=== PATIENT | female | born 1940 | race Caucasian/White ===

== ENCOUNTER → 2016-03-29 | Outpatient (REF) | payer MEDICARE, OTHER ==
[~2016-03-29] MED LIST: /LOR25TA PO; /METH500TA PO; /METO25TAB PO; /PANT40TA; ACID1CAP PO; AMBIEN PO; COUM2.5T11 PO; CRANBERRY PO; EC-881TA PO; ESTROGEN REPLACEMENT; EXTR500C4 PO; IBUP-1114 PO; LEVA500T PO; LISI-538 PO; LISI10TA2 PO; METF500T PO; METH4TAB6 PO; MOTRIN PO; MYRB25TA PO; OXYB5TA PO; PERC5TAB6 PO; PROBIOTIC PO; SENO8.6T9 PO; SIMV20TA2 PO; TOPROL; TYLE325T5 PO; VITA500C10 PO; ZOCO20TA PO; [UNRECOGNIZED DRUG - REMARK]
== END ==
LOC: M SMT 13:09
PROVIDERS: ATTEND Nurse Practitioner Family
DX: R30.0 Dysuria (principal)

== ENCOUNTER → 2016-04-30 | Outpatient (REF) | payer MEDICARE, OTHER | LOC: M SMT 13:02 | PROVIDERS: ATTEND Urology | DX: R33.9 Retention of urine, unspecified (principal) ==

== ENCOUNTER → 2016-05-17 | Outpatient (REF) | payer MEDICARE, OTHER | LOC: M SMT 13:30 | PROVIDERS: ATTEND Nurse Practitioner Women's Health | DX: R35.0 Frequency of micturition (principal) ==

== ENCOUNTER → 2016-05-27 | Outpatient (REF) | payer MEDICARE, OTHER | LOC: M LAB REF 11:00 | PROVIDERS: ATTEND Nurse Practitioner Adult Health | DX: N39.0 Urinary tract infection, site not specified (principal) ==

== ENCOUNTER → 2016-06-17 | Outpatient (REF) | payer MEDICARE, OTHER | LOC: M SMT 12:57 | PROVIDERS: ATTEND Urology | DX: R33.9 Retention of urine, unspecified (principal) | CPT/HCPCS: 81001; 87088; 87186; G0463 ==

== ENCOUNTER → 2016-07-06 | Outpatient (REF) | payer MEDICARE, OTHER | LOC: M LAB REF 17:05 | PROVIDERS: ATTEND Obstetrics & Gynecology | DX: N30.80 Other cystitis without hematuria (principal); Z87.440 Personal history of urinary (tract) infections ==

== ENCOUNTER → 2016-07-15 | Outpatient (REF) | payer MEDICARE, OTHER | LOC: M LAB REF 12:45 | PROVIDERS: ATTEND Nurse Practitioner Women's Health | DX: R30.0 Dysuria (principal) ==

== ENCOUNTER → 2016-09-17 | Outpatient (REF) | payer MEDICARE, OTHER ==
[~2016-09-17] MED LIST changes: +ASPI1TAB PO; +COUM1TAB17 PO; -COUM2.5T11 PO; +COUM2.5T17 PO; +FLORCAP6 PO; +HYDR-3713 PO; +IBUP200T45 PO; +LEVA1TAB2 PO; -LEVA500T PO; +MACR100C43 PO; +MENE0.3T PO; -METF500T PO; +METF500T13 PO; +OXYB10TA PO; -OXYB5TA PO; +OXYB5TAB10 PO; +PERC5TAB12 PO; -PERC5TAB6 PO
== END ==
LOC: M LAB REF 16:26
PROVIDERS: ATTEND Obstetrics & Gynecology
DX: R30.0 Dysuria (principal); R33.8 Other retention of urine

== ENCOUNTER → 2016-10-22 | Outpatient (CLI) | payer MEDICARE, OTHER ==
[2016-10-22 12:19] LABS: MEAN CORPUSCULAR HEMOGLOBIN 31.1 pg (27.0-33.0); MEAN CORPUSCULAR HGB CONC 33.8 g/dl (32.0-36.5); MEAN CORPUSCULAR VOLUME 92.2 fl (80.0-96.0); RED CELL DISTRIBUTION WIDTH 12.6 % (11.5-14.5); WHITE BLOOD COUNT 5.7 K/mm3 (4.0-10.0)
[2016-10-22 12:37] LABS: INR 0.98
--- NOTE | 2016-10-22 12:38 | REP ---
Clinical: Preoperative assessment . Comparison: 06/02/2015 . Technique: PA and lateral. Findings: The mediastinum and cardiac silhouette are normal. Airway is patent and midline. The lung parnell are clear and without acute consolidation, effusion, or pneumothorax. Status post right shoulder arthroplasty and advanced degenerative changes to the left shoulder. Impression: 1. No acute cardiopulmonary process. Signed by Jimmy Chandra MD 10/22/2016 12:30 P
[2016-10-22 12:44] LABS: ALBUMIN 3.6 GM/DL (3.2-5.2); ALBUMIN/GLOBULIN RATIO 1.03 (1.00-1.93); ALKALINE PHOSPHATASE 70 U/L (45-117); ALT/SGPT 18 U/L (12-78); ANION GAP 9 MEQ/L (8-16); AST/SGOT 13 U/L (15-37); BILIRUBIN,TOTAL 0.4 MG/DL (0.2-1.0); BLOOD UREA NITROGEN 19 MG/DL (7-18); CALCIUM LEVEL 8.8 MG/DL (8.8-10.2); CARBON DIOXIDE LEVEL 24 MEQ/L (21-32); CHLORIDE LEVEL 109 MEQ/L (98-107); CREATININE FOR GFR 0.75 MG/DL (0.55-1.02); GLOMERULAR FILTRATION RATE > 60.0 (>39); GLUCOSE, FASTING 88 MG/DL (83-110); POTASSIUM SERUM 4.5 MEQ/L (3.5-5.1); SODIUM LEVEL 142 MEQ/L (136-145); TOTAL PROTEIN 7.1 GM/DL (6.4-8.2)
--- NOTE | 2016-10-22 16:51 | ECGEPIP ---
Stationary ECG Study [facility] Test Date: 2016-10-22 Pat Name: ZENY SIERRA Department: Room: - Gender: F Wall Taper: : 1940 Requested By: Jose Emerson Order Number: [id number] Reading MD: Sohan Pace Measurements Intervals [place] Rate: 56 P: 46 DE: 162 QRS: -31 QRSD: 131 T: -11 QT: 436 QTc: 424 Interpretive Statements Sinus bradycardia Left axis deviation Right bundle branch block No significant change when compared to prior tracing of 06/02/2015 Electronically Signed On 10-22-2016 16:51:17 EDT by Sohan Pace
== END ==
LOC: M ADMPAT 10:21
PROVIDERS: ATTEND Orthopaedic Surgery
DX: Z01.818 Encounter for other preprocedural examination (principal); E11.9 Type 2 diabetes mellitus without complications; M17.12 Unilateral primary osteoarthritis, left knee

== ENCOUNTER 2016-11-04 12:59 | Inpatient (IN) | payer MEDICARE, OTHER ==
--- NOTE | 2016-11-02 15:09 | HPE ---
DATE OF ADMISSION: 11/04/2016 CHIEF COMPLAINT: Left knee pain. HISTORY OF PRESENT ILLNESS: This is a pleasant 76-year-old female with progressively worsening left knee pain and stiffness. She has failed to improve with conservative treatment. She has elected for surgery for her continued symptoms. She has pain with weightbearing activities and her activities of daily living. X-rays of her knee are notable for advanced osteoarthritis of the left knee joint. She has consented for a left total knee arthroplasty with Dr. Ki Aponte. Medical optimization was performed by Dr. Sharif. ALLERGIES: PINEAPPLE, PENICILLIN, SULFA, and CIPROFLOXACIN. CURRENT MEDICATIONS: - metformin 500 mg two tablets once a day - simvastatin 20 mg one tablet at bedtime - Menest 0.3 mg one tablet daily - Myrbetriq 0.25 mg one tablet daily - lisinopril 20 mg one tablet daily - aspirin 81 mg a day - vitamin C 1000 mg a day - Florajen 3 one tablet a day PAST MEDICAL HISTORY: Includes: 1. Diabetes. 2. Hypertension. 3. High cholesterol. PAST SURGICAL HISTORY: Includes: 1. Cholecystectomy. 2. Hysterectomy. 3. Abdominal hernia repair. 4. Gallbladder surgery. 5. Appendectomy. SOCIAL HISTORY: This patient is retired. She does not smoke. Occasionally drinks alcohol. FAMILY HISTORY: Noncontributory. REVIEW OF SYSTEMS: This patient denies chest pain, heart palpitations, cough, wheezing, difficulty breathing and shortness of breath. She denies abdominal pain, nausea, vomiting, diarrhea or constipation. She denies recent upper respiratory infection or urinary tract infection symptoms. She does complain of persistent pain in her left knee and pain with weightbearing activities in her left knee. PHYSICAL EXAMINATION: GENERAL: She is a well-nourished, well-developed, in no acute distress, alert female patient. She walks with a moderate limp favoring her left lower extremity. She is not using assistive devices. VITAL SIGNS: She is 61-1/2 inches tall, weighs 174.8 pounds with a temperature of 97.0, blood pressure 100/80, pulse of 68, respirations of 12. NECK: Supple without adenopathy or jugular venous distension. There were no carotid bruits appreciated upon auscultation. LUNGS: Clear to auscultation without rales or wheeze throughout. HEART: Regular rate and rhythm. ABDOMEN: Bowel sounds were present. EXTREMITIES: Examination of the knee revealed intact skin. She has decreased range of motion on examination secondary to pain and stiffness. The limb is neurovascularly intact. LABORATORY DATA: Chest x-ray showed no acute cardiopulmonary disease processes. EKG showed sinus bradycardia at 56 beats per minute. Urine culture showed no growth. Nasal and sinus culture showed heavy growth of Staphylococcus aureus and moderate growth of Pseudomonas aeruginosa. CBC showed a red count of 3.92, otherwise within normal limits. Sedimentation rate was 28. UA showed cloudy appearance, 3+ leukocyte esterase, 2+ blood, white blood cells too numerous to count, red blood cells 42, bacteria 1+, otherwise within normal limits with a specific gravity 1.011. Prothrombin time 13.1, INR 0.98, glucose 88, BUN 19, creatinine 0.75, sodium 142, potassium 4.5. IMPRESSION: 1. Symptomatic osteoarthritis of the left knee joint. 2. 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 PLAN: The patient was placed on Bactroban ointment to the nares and Hibiclens scrubs prior to her surgery. Otherwise, she is consented for a left total knee arthroplasty by Dr. Ki Aponte.
[~2016-11-04] VITALS: Ht 157.5 cm; Wt 75.3 kg
[~2016-11-04 12:59] MED LIST changes: -COUM1TAB17 PO; -HYDR-3713 PO; -MACR100C43 PO; -OXYB10TA PO
[2016-11-04] MEDS ORDERED: ACETAMINOPHEN 500 MG TAB PO ONE (13:00)
[2016-11-04] MEDS ORDERED: LR 1,000 ML IV ONE (13:00)
[2016-11-04] MEDS ORDERED: COUM1TAB17 PO (13:48)
[2016-11-04] MEDS ORDERED: VANCOMYCIN HCL 1,000 MG, VIAL MATE ADAPTER 1 EACH in D5W 250 ML IV ONE (14:00)
[2016-11-04] MEDS ORDERED: fentaNYL 100 MCG/2 ML INJECTION (J3010) As Ordered ONE ×2 (14:48→17:10)
[2016-11-04] MEDS ORDERED: MIDAZOLAM INJ 2 MG/2 ML VIAL (J2250) As Ordered ONE ×2 (14:48→17:10)
[2016-11-04] MEDS ORDERED: ceFAZolin 1GM INJ (J0690) As Ordered ONE (16:09)
[2016-11-04] MEDS ORDERED: BUPIVACAINE LIPOSOME/PF 1.3% 20 ML VIAL (13.3MG/ML)(EXPAREL) As Ordered ONE (16:09)
[2016-11-04] MEDS ORDERED: TRANEXAMIC ACID 100 MG/ML 10ML VIAL As Ordered ONE (16:09)
[2016-11-04] MEDS ORDERED: EPINEPHrine INJ 1 MG/ML 1ML AMP As Ordered ONE (16:10)
[2016-11-04] MEDS ORDERED: CLINDAMYCIN INJ 900MG/6ML VIAL As Ordered ONE (16:12)
[2016-11-04] MEDS ORDERED: MIDAZOLAM INJ 2 MG/2 ML VIAL (J2250) IV ONE (16:15)
[2016-11-04] MEDS ORDERED: fentaNYL 100 MCG/2 ML INJECTION (J3010) IV ONE (16:15)
[2016-11-04] MEDS ORDERED: LIDOCAINE 1% MDV 20ML VIAL ONE (17:03)
[2016-11-04] MEDS ORDERED: dexameTHASONE 10 MG/1 ML VIAL PRES.FREE (J1100) ONE (17:03)
[2016-11-04] MEDS ORDERED: ROPIvacaine 0.5% 30 ML INJECTION (J2795) ONE (17:03)
[2016-11-04] MEDS ORDERED: LIDOCAINE 2% INJ 100 MG/5 ML SDV (FOR ANES.) As Ordered ONE (17:10)
[2016-11-04] MEDS ORDERED: PROPOFOL 200 MG/20 ML VIAL As Ordered ONE (17:10)
[2016-11-04] MEDS ORDERED: ePHEDrine SULFATE 25 MG/5 ML(5MG/ML) SYRINGE As Ordered ONE (17:10)
[2016-11-04] MEDS ORDERED: MORPHINE 1MG/ML IN 0.9% NACL 100ML IV BAG As Ordered ONE (18:46)
[2016-11-04] MEDS ORDERED: MORPHINE 1MG/ML IN 0.9% NACL 100ML IV BAG IV PRN (19:00)
[2016-11-04] MEDS ORDERED: diphenhydrAMINE INJ 50MG/ML VIAL (J1200) IV PRN (19:00)
[2016-11-04] MEDS ORDERED: PERCOCET 5MG/325MG TAB PO PRN (19:00)
[2016-11-04] MEDS ORDERED: NALBUPHINE HCL 10 MG/ML AMP (J2300) IV PRN (19:00)
[2016-11-04] MEDS ORDERED: ONDANSETRON 4MG/2ML VIAL (J2405) IV PRN ×2 (19:00)
[2016-11-04] MEDS ORDERED: EPIDURAL/PCA KEYS XX PRN (19:00)
[2016-11-04] MEDS ORDERED: fentaNYL 100 MCG/2 ML INJECTION (J3010) IV PRN (19:00)
[2016-11-04] MEDS ORDERED: HYDROmorphone HCL 1 MG/ML SYRINGE (J1170) IV PRN (19:00)
[2016-11-04] MEDS ORDERED: FLEET ENEMA PR PRN (19:00)
[2016-11-04] MEDS ORDERED: LR 1,000 ML IV SCH ×2 (19:00)
[2016-11-04] MEDS ORDERED: NALOXONE INJ 0.4 MG/1 ML VIAL (J2310) IV PRN (19:00)
[2016-11-04] MEDS ORDERED: ACETAMINOPHEN TAB 650MG DOSE (2X325MG) PO PRN (19:00)
[2016-11-04] MEDS ORDERED: GLUCAGON FOR INJ 1 MG VIAL (J1610) SC PRN (19:15)
[2016-11-04] MEDS ORDERED: DEXTROSE 50% 50 ML SYRINGE IV PRN (19:15)
[2016-11-04] MEDS ORDERED: GLUCOSE 4 GM CHEW TABLET PO PRN (19:15)
[2016-11-04 20:00] VITALS: BP 133/74
--- NOTE | 2016-11-04 20:12 | CR ---
DATE OF CONSULTATION: 11/04/2016 REFERRING PHYSICIAN: Dr. Jose Aponte REASON FOR CONSULTATION: Management of chronic medical problems. HOSPITALIST QUANTITATIVE ANALYST MARKETING: Dr. Tom Felix CHIEF COMPLAINT: Left knee pain. HISTORY OF PRESENTING ILLNESS: 76-year-old female with history of diabetes, hypertension, hypercholesterolemia, with limitation of activities of daily living due to severe osteoarthritic pain despite conservative measures, underwent left total knee arthroplasty, hospitalist service was consulted for management of chronic issues. The patient otherwise denies fevers, chills, weight gain, weight loss, changes in appetite, rhinorrhea, odynophagia, dysphagia, chest pain, pressure or tightness, shortness of breath, palpitations, lightheadedness, nausea, vomiting, diarrhea, abdominal pain, constipation, upper or lower extremity weakness, paresthesias, depression or anxiety. Prior history significant for hypercholesterolemia, diabetes, and hypertension. Pain is adequately controlled currently. PAST MEDICAL HISTORY: 1. Hypertension. 2. Diabetes. 3. Hypercholesterolemia. 4. 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 PAST SURGICAL HISTORY: 1. Cholecystectomy. 2. Hysterectomy. 3. Abdominal hernia repair. 4. Gallbladder surgery. 5. Appendectomy, HOME MEDICATIONS: - metformin 500 mg two tablets daily - simvastatin 20 mg nightly - Menest 0.3 mg daily - Myrbetriq 0.25 daily - lisinopril 20 daily - aspirin 81 daily - vitamin C 1 gram daily - Florajen - Bactroban ointment to nares - Hibiclens scrubs prior to surgery SOCIAL HISTORY: Retired. Occasionally drinks alcohol. FAMILY HISTORY: Noncontributory. REVIEW OF SYSTEMS: 12-point systems obtained, all of which are negative. PHYSICAL EXAMINATION: Temperature 96.2, pulse 72, respiratory rate 16, blood pressure 104/84, 93% to 97% on two liters nasal cannula. GENERAL: Patient is awake, alert, oriented, answering questions appropriately. No use of respiratory accessory muscles. Anicteric sclerae, no jaundice. Speaks in full sentences. No carotid bruits, jugular venous distention, thyromegaly, or cervical lymphadenopathy. LUNGS: Clear to auscultation. No wheezing, rales, or rhonchi. HEART: S1, S2, sinus rhythm. ABDOMEN: Soft, nontender, nondistended. Positive bowel sounds. EXTREMITIES: Postoperative left knee in a bandage. LABORATORY DATA: White count 5.7, hemoglobin 12, hematocrit 36, platelet count 190 on 10/22/2016. On 10/22/2016: Sodium 142, potassium 4.5, chloride 109, bicarbonate 24, BUN 19, creatinine 0.75, glucose of 88. Urine culture on 10/22/2016, no growth of clinical significance. Imaging study on 10/22/2016, no acute cardiopulmonary process. ASSESSMENT AND PLAN: This is a 76-year-old female with hypertension, diabetes, hypercholesterolemia, presents for a left knee arthroplasty due to severe osteoarthritis. CURRENT ISSUES: 1. Left knee osteoarthritis status post left knee arthroplasty managed by primary team, orthopedic surgery, Dr. Ki Aponte, deep venous thrombosis (DVT) prophylaxis, pain medication, bowel regimen, physical therapy (PT) in the morning, activity per orthopedic surgery. 2. Type 2 diabetes. Continue consistent carbohydrate diet. No added salt. Sliding scale. Check A1c in the morning. 3. Hypertension. May resume home dose of lisinopril. Monitor patient's creatinine and check a basic metabolic panel (BMP) in the morning. 4. Hypercholesterolemia. Check lipid panel in the morning. Continue simvastatin. 5. Deep venous thrombosis (DVT) prophylaxis per primary team. Patient will be signed out to Dr. Tom Felix at 7pm 11/04/16. RICHIED
[2016-11-04] MEDS: HumaLOG INSULIN (NovoLOG) PER UNIT SC SCH (20:18)
[2016-11-04] MEDS: SIMVASTATIN 20 MG TAB PO SCH (20:18)
[2016-11-04 20:30] VITALS: BP 132/74
[2016-11-04] MEDS ORDERED: WARFARIN SOD 5 MG TAB PO ONE (21:00)
[2016-11-04 21:30] VITALS: BP 132/72
[2016-11-04 22:30] VITALS: BP 133/71
[2016-11-04 23:30] VITALS: BP 134/68
[2016-11-05 00:30] VITALS: BP 122/72
[2016-11-05] MEDS ORDERED: VANCOMYCIN HCL 1,000 MG, VIAL MATE ADAPTER 1 EACH in D5W 250 ML IV ONE (03:00)
[2016-11-05 04:30] VITALS: BP 127/67
--- NOTE | 2016-11-05 06:35 | RO ---
DATE OF PROCEDURE: 11/04/2016 PREOPERATIVE DIAGNOSIS: Left knee degenerative arthritis. POSTOPERATIVE DIAGNOSIS: Left knee degenerative arthritis. PROCEDURE: Left total knee arthroplasty using a 2.5 cruciate retaining femoral component, with a 2.5 tibial tray, with a 10.5 mm rotating polyethylene insert and a 35 mm plastic patellar button. All components were cemented. Prosthesis was made by [employer]. It was a PFC knee. SURGEON: Jose Aguirre MD ELECTRONEURODIAGNOSTIC TECHNOLOGIST: Barbie Robert ANESTHESIA: Spinal with left femoral nerve block. COMPLICATIONS: None. SPECIMENS: Joint surface. ESTIMATED BLOOD LOSS: 20 mL. DESCRIPTION OF PROCEDURE: Antibiotics were given intravenously preoperatively, then a successful left femoral nerve block anesthetic was established. A Sahu catheter was placed. The left lower extremity was carefully prepped and draped in the usual sterile fashion. A sterile tourniquet applied and then the leg was elevated. Then, after appropriate time-out, the tourniquet was inflated. A longitudinal incision was made from medial parapatellar approach to the knee. A Bovie cautery was used to coagulate the crossing vessels, and we performed a medial parapatellar arthrotomy. Subperiosteal dissection around the proximal medial portion of the tibia was performed as well as the proximal lateral tibial plateau, and then the patella was everted, the knee flexed and the anterior cruciate ligament (ACL) was debrided. A drill was placed down the center of the femoral canal, followed by intramedullary ester with the distal femoral cutting block set at 5 degree valgus cut,10 mm resection level for a left knee. A distal femoral cut was performed. AP sizing jig measured 2.5 sized femoral component and the 3 degree external rotation block was pinned, followed by the 4-in-1 block. The anterior, posterior, chamfer cuts were then performed taking great care to protect the surrounding soft tissues. We then exposed the proximal tibia, used the extramedullary device to help estimate being parallel to the mechanical axis of the tibia. We referenced off the medial tibial condyle, pinned the block into position and then secondary check with the ester confirmed, which appeared to be parallel to the mechanical axis. Proximal tibial osteotomy was then performed. Lamina segmental wall installer was placed laterally and we performed a completion medial meniscectomy and debridement of the posterior medial osteophytes. We then placed the lamina segmental wall installer medially and performed a completion lateral meniscectomy and debridement of the posterior lateral osteophytes. The spacer, 10 mm fit nicely with good stability to varus and valgus stress testing with good symmetry using flexion and extension gaps. We then exposed the proximal tibia, sized for a 2.5 tray, which was pinned and reamed and then broached into position, followed by the trial polyethylene and then the trial femoral component, which fit nicely. We brought the knee into extension. Everted the patella. Performed the patellar osteotomy. Sized for a 35 patellar component the lug holes were drilled. Patellofemoral femoral trial was placed and the patellofemoral tracking was anatomic. We therefore, then drilled lug holes for the femur, removed all the trial components. We placed Exparel in the posterior joint capsule as well as the medial and lateral subperiosteal areas of the femur and the edges of the arthrotomy. Mrs. Barbie Jones then mixed the cement on the back table as I prepared the jason surfaces for cementing with pulsatile lavage irrigant solution. She was also critical to the success of this procedure by helping to manipulate the knee and apply appropriate soft retraction, close the wound, amongst many other tasks. Once the cement had been mixed and all the bony surfaces were thoroughly dried, I cemented the tibial tray and removed excess cement. Placed the polyethylene, then cemented the femoral component and removed excess cement. Brought the knee into extension and everted the patella and cemented the patellar component, then removed all excess cement. The clamp for the patella was held in position until the cement hardened, and while we were waiting for the cement to harden, I copiously pulsatile lavage irrigated out the knee joint once again, and then instilled the tranexamic acid. The apex of the arthrotomy was closed with interrupted #1 PDS suture and the medial parapatellar area was closed with a #1 PDS suture. Then, we used a double armed running Stratafix to close the capsule and then released the tourniquet. Irrigated between layers. Closed the deep subdermal tissues with interrupted PDS suture. The skin was closed with mone, covered by Adaptic, dry sterile bulky dressing. She was then transferred to the recovery room in stable condition. There were no intraoperative complications.
[2016-11-05] MEDS ORDERED: ONDANSETRON 4 MG TAB (S0181) PO PRN (06:45)
[2016-11-05 07:05] LABS: INR 1.2
[2016-11-05 07:08] LABS: BASO % 0.1 % (0.0-1.0); EOS % 0.1 % (0.0-3.0); LARGE UNSTAINED CELL % 0.4 % (0.0-4.0); LYMPH # 0.8 K/mm3 (1.5-4.5); LYMPH % 10.6 % (24.0-44.0); MEAN CORPUSCULAR HEMOGLOBIN 31.5 pg (27.0-33.0); MEAN CORPUSCULAR HGB CONC 34.9 g/dl (32.0-36.5); MEAN CORPUSCULAR VOLUME 90.3 fl (80.0-96.0); MONO # 0.2 K/mm3 (0.0-0.8); MONO % 2.9 % (0.0-5.0); NEUTROPHILS # 6.7 K/mm3 (1.8-7.7); NEUTROPHILS % 85.8 % (36.0-66.0); PLATELET COUNT, AUTOMATED 163 k/mm3 (150-450); RED CELL DISTRIBUTION WIDTH 12.6 % (11.5-14.5); WHITE BLOOD COUNT 7.8 K/mm3 (4.0-10.0)
[2016-11-05 07:35] LABS: ANION GAP 11 MEQ/L (8-16); BLOOD UREA NITROGEN 15 MG/DL (7-18); CALCIUM LEVEL 8.4 MG/DL (8.8-10.2); CARBON DIOXIDE LEVEL 23 MEQ/L (21-32); CHLORIDE LEVEL 108 MEQ/L (98-107); CHOLESTEROL LEVEL 137 MG/DL (<200); CREATININE FOR GFR 0.74 MG/DL (0.55-1.02); GLOMERULAR FILTRATION RATE > 60.0 (>39); GLUCOSE, FASTING 191 MG/DL (83-110); POTASSIUM SERUM 4.2 MEQ/L (3.5-5.1); SODIUM LEVEL 142 MEQ/L (136-145); TRIGLYCERIDES LEVEL 85 MG/DL (<150)
[2016-11-05] MEDS: MOM 30ML SUSPENSION UDC PO SCH (08:38)
[2016-11-05] MEDS: MIRALAX *UNIT DOSE* 17GM PACKET PO SCH ×2 (08:39→08:45)
[2016-11-05] MEDS: SENOKOT S TAB PO SCH ×2 (08:41→20:32)
[2016-11-05] MEDS: LISINOPRIL 20 MG TAB PO SCH (08:41)
[2016-11-05] MEDS: LACTOBACILLUS ACIDOPHILUS CAP (BACID) PO SCH ×2 (08:42→17:22)
[2016-11-05] MEDS: HumaLOG INSULIN (NovoLOG) PER UNIT SC SCH ×4 (08:42→21:00)
[2016-11-05] MEDS: ASCORBIC ACID 500 MG TAB PO SCH (08:42)
[2016-11-05] MEDS: PERCOCET 5MG/325MG TAB PO PRN ×4 (08:43→22:13)
[2016-11-05] MEDS ORDERED: ASCORBIC ACID 500 MG TAB PO SCH (09:00)
--- NOTE | 2016-11-05 09:51 | REP ---
Left knee two views: There is a total knee arthroplasty with the components tightly applied and in satisfactory positions alignment both projections. Skin mone are incidentally identified. Signed by Quintin Doyle MD 11/05/2016 09:43 A
[2016-11-05 10:00] VITALS: BP 125/68
[2016-11-05 14:00] VITALS: BP 121/63
--- NOTE | 2016-11-05 15:35 | IPNPDOC ---
Text Note Date of Service The patient was seen on 11/05/16. NOTE Subjective: Patient feels well. Denies any complaints. Objective: Vitals: (see below) General: No acute distress, laying comfortably in bed. HEENT: Moist mucous membranes. Neck: No JVD or lymphadenopathy Cardiac: RRR, No murmurs Pulm: Clear to auscultation b/l. No wheezing, rhonchi Abd: NT/ND + BS Ext: No edema or cyanosis. Left knee and Bruno bandage. Distal pulses intact. Labs (see below) Images: Assessment/Plan 1. Left knee arthritis status post left total knee arthroplasty on 10/15/16. Management per orthopedics 2. Diabetes mellitus- neurologic consistent diet. Sliding scale insulin. A1c is 5.6. 3. Hypertension- controlled. Continue home meds. 4. Hyperlipidemia- continue statin DVT prophy: Per orthopedics VS,Fishbone, I+O VS, Fishbone, I+O Laboratory Tests 11/05/16 06:39 Red Blood Count 3.54 L, Mean Corpuscular Volume 90.3, Mean Corpuscular Hemoglobin 31.5, Mean Corpuscular Hemoglobin Concent 34.9, Red Cell Distribution Width 12.6, Neutrophils (%) (Auto) 85.8 H, Lymphocytes (%) (Auto) 10.6 L, Monocytes (%) (Auto) 2.9, Eosinophils (%) (Auto) 0.1, Basophils (%) ( Auto) 0.1, Neutrophils # (Auto) 6.7, Lymphocytes # (Auto) 0.8 L, Monocytes # ( Auto) 0.2, Eosinophils # (Auto) 0.0, Basophils # (Auto) 0.0 Vital Signs Date Time Temp Pulse Resp B/P (MAP) Pulse Ox O2 Delivery O2 Flow Rate FiO2 11/05/16 13:18 16 11/05/16 08:41 118/67 11/05/16 04:30 97.7 70 97 Room Air 11/04/16 21:00 2.0 I&O- Last 24 Hours up to 6 AM 11/06/16 06:00 Intake Total 400 ml Balance 400 ml KISHAN KNOWLES MD Nov 05, 2016 15:35
[2016-11-05] MEDS ORDERED: WARFARIN SOD 5 MG TAB PO ONE (17:00)
[2016-11-05] MEDS: SIMVASTATIN 20 MG TAB PO SCH (20:32)
[2016-11-05 22:00] VITALS: BP 120/57
[2016-11-06] MEDS: PERCOCET 5MG/325MG TAB PO PRN ×6 (02:23→23:13)
[2016-11-06] MEDS ORDERED: MORPHINE 4 MG/ML 1ML SYRINGE IV PRN (05:45)
[2016-11-06 06:00] VITALS: BP 128/62
[2016-11-06 06:24] LABS: MEAN CORPUSCULAR HEMOGLOBIN 31.9 pg (27.0-33.0); MEAN CORPUSCULAR HGB CONC 34.7 g/dl (32.0-36.5); MEAN CORPUSCULAR VOLUME 91.7 fl (80.0-96.0); RED CELL DISTRIBUTION WIDTH 12.9 % (11.5-14.5); WHITE BLOOD COUNT 8.8 K/mm3 (4.0-10.0)
[2016-11-06 06:32] LABS: INR 1.89
[2016-11-06 06:55] LABS: ANION GAP 6 MEQ/L (8-16); BLOOD UREA NITROGEN 18 MG/DL (7-18); CALCIUM LEVEL 8.1 MG/DL (8.8-10.2); CARBON DIOXIDE LEVEL 26 MEQ/L (21-32); CHLORIDE LEVEL 110 MEQ/L (98-107); CREATININE FOR GFR 0.74 MG/DL (0.55-1.02); GLOMERULAR FILTRATION RATE > 60.0 (>39); GLUCOSE, FASTING 103 MG/DL (83-110); POTASSIUM SERUM 4.4 MEQ/L (3.5-5.1); SODIUM LEVEL 142 MEQ/L (136-145)
[2016-11-06] MEDS: HumaLOG INSULIN (NovoLOG) PER UNIT SC SCH ×4 (07:30→21:00)
[2016-11-06] MEDS: LACTOBACILLUS ACIDOPHILUS CAP (BACID) PO SCH ×2 (08:09→17:26)
[2016-11-06] MEDS: SENOKOT S TAB PO SCH ×2 (08:09→20:18)
[2016-11-06] MEDS: ASCORBIC ACID 500 MG TAB PO SCH (08:09)
[2016-11-06] MEDS: MOM 30ML SUSPENSION UDC PO SCH (08:10)
[2016-11-06] MEDS: MIRALAX *UNIT DOSE* 17GM PACKET PO SCH (08:10)
[2016-11-06] MEDS: MORPHINE 15 MG SA TAB PO SCH ×2 (08:10→20:20)
[2016-11-06] MEDS: LISINOPRIL 20 MG TAB PO SCH (08:14)
[2016-11-06] MEDS: oxyBUTYnin *DITROPAN XL* 5 MG TABCR PO SCH (09:46)
[2016-11-06 14:00] VITALS: BP 96/48
--- NOTE | 2016-11-06 14:03 | IPNPDOC ---
Text Note Date of Service The patient was seen on 11/06/16. NOTE Subjective: Increased pain at the left knee. Decreased ROM of LLE. No CP/SOB/ palpitations. No COREA, slurred speech, dysarthria. Objective: Vitals: (see below) General: No acute distress, laying comfortably in bed. HEENT: Moist mucous membranes. Neck: No JVD or lymphadenopathy Cardiac: RRR, No murmurs Pulm: Clear to auscultation b/l. No wheezing, rhonchi Abd: NT/ND + BS Ext: No edema or cyanosis. Left knee and Bruno bandage tender to palpation. Distal pulses intact. Neuro: Strength 5/5 BUE and 5/5 RLE. 2/5 LLE. CN 2-12 intact. Negative Babinki. Sensation to fine/pinprick touch intact. Labs (see below) Images: Assessment/Plan 1. Left knee arthritis status post left total knee arthroplasty on 10/15/16. Management per orthopedics. pain management per ortho. 2. Diabetes mellitus- neurologic consistent diet. Sliding scale insulin. A1c is 5.6. 3. Hypertension- controlled. Continue home meds. 4. Hyperlipidemia- continue statin 5. Decreased strength LLE. Pt states it was similar to presentation after nerve block post-op. Able to wiggle toes. Would like to wait and observe before further workup to r/o CVA. DVT prophy: Per orthopedics VS,Christopher, I+O VS, Christopher, I+O Laboratory Tests 11/06/16 06:09 Red Blood Count 3.35 L, Mean Corpuscular Volume 91.7, Mean Corpuscular Hemoglobin 31.9, Mean Corpuscular Hemoglobin Concent 34.7, Red Cell Distribution Width 12.9, Calcium Level 8.1 L Vital Signs Date Time Temp Pulse Resp B/P (MAP) Pulse Ox O2 Delivery O2 Flow Rate FiO2 11/06/16 11:30 18 11/06/16 08:14 104/49 11/06/16 06:00 97.6 56 100 Room Air 11/04/16 21:00 2.0 I&O- Last 24 Hours up to 6 AM 11/07/16 06:00 Intake Total 920 ml Output Total 100 ml Balance 820 ml KISHAN KNOWLES MD Nov 06, 2016 14:03
[2016-11-06] MEDS ORDERED: WARFARIN SOD 2.5 MG TAB PO ONE (17:00)
[2016-11-06] MEDS: SIMVASTATIN 20 MG TAB PO SCH (20:18)
[2016-11-06 22:00] VITALS: BP 104/54
[2016-11-07] MEDS: PERCOCET 5MG/325MG TAB PO PRN ×4 (03:10→22:09)
[2016-11-07 06:00] VITALS: BP 120/59
[2016-11-07 07:05] LABS: MEAN CORPUSCULAR HEMOGLOBIN 31.6 pg (27.0-33.0); MEAN CORPUSCULAR HGB CONC 34.1 g/dl (32.0-36.5); MEAN CORPUSCULAR VOLUME 92.5 fl (80.0-96.0); RED CELL DISTRIBUTION WIDTH 12.9 % (11.5-14.5); WHITE BLOOD COUNT 7.6 K/mm3 (4.0-10.0)
[2016-11-07 07:08] LABS: INR 2.32
[2016-11-07 07:28] LABS: ANION GAP 6 MEQ/L (8-16); BLOOD UREA NITROGEN 17 MG/DL (7-18); CALCIUM LEVEL 8.2 MG/DL (8.8-10.2); CARBON DIOXIDE LEVEL 29 MEQ/L (21-32); CHLORIDE LEVEL 105 MEQ/L (98-107); CREATININE FOR GFR 0.79 MG/DL (0.55-1.02); GLOMERULAR FILTRATION RATE > 60.0 (>39); GLUCOSE, FASTING 93 MG/DL (83-110); SODIUM LEVEL 140 MEQ/L (136-145)
[2016-11-07] MEDS: HumaLOG INSULIN (NovoLOG) PER UNIT SC SCH ×4 (07:30→20:35)
[2016-11-07] MEDS: SENOKOT S TAB PO SCH ×2 (08:03→20:35)
[2016-11-07] MEDS: oxyBUTYnin *DITROPAN XL* 5 MG TABCR PO SCH (08:03)
[2016-11-07] MEDS: LACTOBACILLUS ACIDOPHILUS CAP (BACID) PO SCH ×2 (08:03→17:35)
[2016-11-07] MEDS: ASCORBIC ACID 500 MG TAB PO SCH (08:03)
[2016-11-07] MEDS: MORPHINE 15 MG SA TAB PO SCH ×2 (08:03→20:34)
[2016-11-07] MEDS: MIRALAX *UNIT DOSE* 17GM PACKET PO SCH (08:04)
[2016-11-07] MEDS: LISINOPRIL 20 MG TAB PO SCH (08:07)
[2016-11-07] MEDS: MOM 30ML SUSPENSION UDC PO SCH (08:09)
[2016-11-07 14:00] VITALS: BP 91/51
--- NOTE | 2016-11-07 14:08 | IPNPDOC ---
Text Note Date of Service The patient was seen on 11/07/16. NOTE Subjective: Pain at the left knee. Decreased ROM of LLE. No CP/SOB/ palpitations. Still no COREA, slurred speech, dysarthria. Objective: Vitals: (see below) General: No acute distress, laying comfortably in bed. HEENT: Moist mucous membranes. Neck: No JVD or lymphadenopathy Cardiac: RRR, No murmurs Pulm: Clear to auscultation b/l. No wheezing, rhonchi Abd: NT/ND + BS Ext: No edema or cyanosis. Left knee and Bruno bandage tender to palpation. Distal pulses intact. Neuro: Strength 5/5 BUE and 5/5 RLE. 2-3/5 LLE. CN 2-12 intact. Negative Babinki. Sensation to fine/pinprick touch intact. Labs (see below) Images: Assessment/Plan 1. Left knee arthritis status post left total knee arthroplasty on 10/15/16. Management per orthopedics. pain management per ortho. 2. Diabetes mellitus- neurologic consistent diet. Sliding scale insulin. A1c is 5.6. 3. Hypertension- controlled. Continue home meds. 4. Hyperlipidemia- continue statin 5. Decreased strength LLE. Pt states it was similar to presentation after nerve block post-op. Able to raise leg. Would like to wait and observe before further workup to r/o CVA. Refused CT/MRI. DVT prophy: Per orthopedics VS,Christopher, I+O VS, Fishbone, I+O Laboratory Tests 11/07/16 06:52 Red Blood Count 3.55 L, Mean Corpuscular Volume 92.5, Mean Corpuscular Hemoglobin 31.6, Mean Corpuscular Hemoglobin Concent 34.1, Red Cell Distribution Width 12.9, Calcium Level 8.2 L Vital Signs Date Time Temp Pulse Resp B/P (MAP) Pulse Ox O2 Delivery O2 Flow Rate FiO2 11/07/16 14:00 18 11/07/16 08:07 120/59 11/07/16 06:00 97.6 63 94 Room Air 11/04/16 21:00 2.0 I&O- Last 24 Hours up to 6 AM 11/08/16 06:00 Intake Total 240 ml Output Total 450 ml Balance -210 ml KISHAN KNOWLES MD Nov 07, 2016 14:08
[2016-11-07] MEDS: SIMVASTATIN 20 MG TAB PO SCH (20:35)
[2016-11-07 22:00] VITALS: BP 94/58
[2016-11-08] MEDS: PERCOCET 5MG/325MG TAB PO PRN ×2 (02:06→08:41)
[2016-11-08 06:00] VITALS: BP 98/54
[2016-11-08] MEDS: HumaLOG INSULIN (NovoLOG) PER UNIT SC SCH ×2 (07:30→12:00)
[2016-11-08 08:00] VITALS: BP 95/55
[2016-11-08] MEDS ORDERED: COUM2.5T17 PO (08:23)
[2016-11-08] MEDS ORDERED: PERC5TAB12 PO (08:23)
[2016-11-08] MEDS: MOM 30ML SUSPENSION UDC PO SCH (08:36)
[2016-11-08] MEDS: LACTOBACILLUS ACIDOPHILUS CAP (BACID) PO SCH (08:37)
[2016-11-08] MEDS: SENOKOT S TAB PO SCH (08:37)
[2016-11-08] MEDS: ASCORBIC ACID 500 MG TAB PO SCH (08:37)
[2016-11-08] MEDS: MORPHINE 15 MG SA TAB PO SCH (08:37)
[2016-11-08 08:40] VITALS: BP 94/55
[2016-11-08] MEDS: MIRALAX *UNIT DOSE* 17GM PACKET PO SCH (08:41)
[2016-11-08] MEDS ORDERED: MACR100C43 PO (08:49)
[2016-11-08] MEDS ORDERED: LISINOPRIL 10 MG TAB PO SCH (09:00)
[2016-11-08] MEDS ORDERED: oxyBUTYnin *DITROPAN XL* 5 MG TABCR PO SCH (09:00)
[2016-11-08 09:01] LABS: ANION GAP 7 MEQ/L (8-16); BLOOD UREA NITROGEN 19 MG/DL (7-18); CARBON DIOXIDE LEVEL 28 MEQ/L (21-32); CHLORIDE LEVEL 101 MEQ/L (98-107); CREATININE FOR GFR 0.74 MG/DL (0.55-1.02); GLOMERULAR FILTRATION RATE > 60.0 (>39); GLUCOSE, FASTING 104 MG/DL (83-110); POTASSIUM SERUM 4.4 MEQ/L (3.5-5.1); SODIUM LEVEL 136 MEQ/L (136-145)
[2016-11-08 09:17] LABS: MEAN CORPUSCULAR HEMOGLOBIN 30.7 pg (27.0-33.0); MEAN CORPUSCULAR HGB CONC 33.3 g/dl (32.0-36.5); MEAN CORPUSCULAR VOLUME 92.2 fl (80.0-96.0); RED CELL DISTRIBUTION WIDTH 12.8 % (11.5-14.5); WHITE BLOOD COUNT 7.8 K/mm3 (4.0-10.0)
[2016-11-08 14:00] VITALS: BP 98/55
--- NOTE | 2016-11-08 16:18 | IPNPDOC ---
Text Note Date of Service The patient was seen on 11/08/16. NOTE Subjective: Getting out of bed and participating with PT. No CP/SOB/ palpitations. Objective: Vitals: (see below) General: No acute distress, laying comfortably in bed. HEENT: Moist mucous membranes. Neck: No JVD or lymphadenopathy Cardiac: RRR, No murmurs Pulm: Clear to auscultation b/l. No wheezing, rhonchi Abd: NT/ND + BS Ext: No edema or cyanosis. Left knee and Bruno bandage tender to palpation. Distal pulses intact. Neuro: Strength 5/5 BUE and 5/5 RLE. 4/5 LLE. CN 2-12 intact. Negative Babinki. Sensation to fine/pinprick touch intact. Labs (see below) Images: Assessment/Plan 1. Left knee arthritis status post left total knee arthroplasty on 10/15/16. Management per orthopedics. pain management per ortho. 2. Diabetes mellitus- neurologic consistent diet. Sliding scale insulin. A1c is 5.6. 3. Hypertension- controlled. Continue home meds. 4. Hyperlipidemia- continue statin 5. Decreased strength LLE. Pt states it was similar to presentation after nerve block post-op. Able to raise leg. Would like to wait and observe before further workup to r/o CVA. Refused CT/MRI. DVT prophy: Per orthopedics VS,Christopher, I+O VS, Christopher, I+O Laboratory Tests 11/08/16 08:28 Red Blood Count 3.73 L, Mean Corpuscular Volume 92.2, Mean Corpuscular Hemoglobin 30.7, Mean Corpuscular Hemoglobin Concent 33.3, Red Cell Distribution Width 12.8, Calcium Level 8.0 L Vital Signs Date Time Temp Pulse Resp B/P (MAP) Pulse Ox O2 Delivery O2 Flow Rate FiO2 11/08/16 14:00 97.9 67 16 98/55 (69) 95 Room Air 11/04/16 21:00 2.0 I&O- Last 24 Hours up to 6 AM 11/09/16 06:00 Intake Total 720 ml Output Total 100 ml Balance 620 ml KISHAN KNOWLES MD Nov 08, 2016 16:18
--- NOTE | 2016-11-10 11:33 | DSES ---
DATE OF ADMISSION: 11/04/2016 DATE OF DISCHARGE: 11/08/2016 ADMITTING DIAGNOSIS: Osteoarthritis left knee. OTHER DIAGNOSES: 1. Diabetes mellitus type 2. 2. Hypertension. 3. Elevated lipids. DISCHARGE DIAGNOSIS: Osteoarthritis left knee status post left total knee arthroplasty. OPERATION PERFORMED: Left total knee arthroplasty. HISTORY: This is a pleasant 76-year-old female patient with progressively worsening left knee pain and stiffness. She failed to improve with conservative management. She was admitted for elective knee replacement on the left side. HOSPITAL COURSE: The patient was admitted on day of surgery and underwent a left total knee arthroplasty which was uneventful. During her hospital course though she did have a difficult time with pain control and getting pain under control was an issue throughout the hospital course. Ultimately, at the end, she was able to get her pain under control and she was able to go forth with the protocol with physical therapy. On the day of discharge, she was doing well, weightbearing as tolerated on her left knee. She will move her left knee to prevent stiffness. She will use adjusted dose Coumadin and thromboembolic deterrent (WHIT) stockings for 30 days postoperative for deep vein thrombosis (DVT) prophylaxis. She will resume her preoperative medications and diet. She was given instructions to include, but not limited to wound monitoring and activity limitations. She will use oral pain medications for pain control. She will follow up in our office in 10-14 days for surgical followup. Please refer to the medical record for further details.
[2016-12-19] MEDS ORDERED: HYDR-3713 PO (19:13)
[2016-12-19] MEDS ORDERED: LEVA1TAB2 PO (22:02)
[2016-12-19] MEDS ORDERED: OXYB10TA PO (22:02)
== END 2016-11-08 14:15 | disposition home health service (06) | DRG 470 ==
LOC: M OR 12:59 → M MS5PR 19:30
PROVIDERS: ADMIT Orthopaedic Surgery; ATTEND Orthopaedic Surgery
PROC: 0SRD0J9 Replacement of Left Knee Joint with Synthetic Substitute, Cemented, Open Approach (ICD-10-PCS; principal; 2016-11-04 15:45)
DX: M17.12 Unilateral primary osteoarthritis, left knee (principal); Z79.899 Other long term (current) drug therapy; Z88.2 Allergy status to sulfonamides; Z88.0 Allergy status to penicillin; Z91.018 Allergy to other foods; Z79.82 Long term (current) use of aspirin; E11.9 Type 2 diabetes mellitus without complications; I10 Essential (primary) hypertension; E78.00 Pure hypercholesterolemia, unspecified; E78.5 Hyperlipidemia, unspecified

== ENCOUNTER → 2016-11-12 | Outpatient (REF) | payer MEDICARE, OTHER ==
[~2016-11-12] MED LIST changes: +COUM1TAB17 PO; +HYDR-3713 PO; +MACR100C43 PO; +OXYB10TA PO
[2016-11-12 10:55] LABS: INR 1.2
== END ==
LOC: M SHH 10:25
PROVIDERS: ATTEND Nurse Practitioner Family
DX: Z79.01 Long term (current) use of anticoagulants (principal)

== ENCOUNTER → 2016-11-15 | Outpatient (REF) | payer MEDICARE, OTHER ==
[2016-11-15 10:20] LABS: INR 1.29
== END ==
LOC: M SHH 09:31
PROVIDERS: ATTEND Nurse Practitioner Family
DX: Z79.01 Long term (current) use of anticoagulants (principal)

== ENCOUNTER → 2016-11-18 | Outpatient (REF) | payer MEDICARE, OTHER ==
[2016-11-18 11:38] LABS: INR 2.08
== END ==
LOC: M SHH 11:18
PROVIDERS: ATTEND Nurse Practitioner Family
DX: Z79.01 Long term (current) use of anticoagulants (principal)

== ENCOUNTER → 2016-11-22 | Outpatient (REF) | payer MEDICARE, OTHER ==
[2016-11-22 11:13] LABS: INR 2.17
== END ==
LOC: M SHH 10:11
PROVIDERS: ATTEND Nurse Practitioner Family
DX: Z79.01 Long term (current) use of anticoagulants (principal)

== ENCOUNTER → 2016-11-25 | Outpatient (REF) | payer MEDICARE, OTHER ==
[2016-11-25 10:27] LABS: INR 1.56
== END ==
LOC: M SHH 09:54 → M LAB REF 09:54
PROVIDERS: ATTEND Nurse Practitioner Family
DX: Z51.81 Encounter for therapeutic drug level monitoring (principal); Z79.01 Long term (current) use of anticoagulants

== ENCOUNTER → 2016-11-29 | Outpatient (REF) | payer MEDICARE, OTHER ==
[2016-11-29 12:44] LABS: INR 1.74
== END ==
LOC: M LAB REF 11:35 → M SHH 11:35
PROVIDERS: ATTEND Nurse Practitioner Family
DX: Z51.81 Encounter for therapeutic drug level monitoring (principal); Z79.01 Long term (current) use of anticoagulants

== ENCOUNTER → 2016-12-02 | Outpatient (REF) | payer MEDICARE, OTHER ==
[2016-12-02 10:06] LABS: INR 1.73
== END ==
LOC: M SHH 09:38
PROVIDERS: ATTEND Nurse Practitioner Family
DX: Z51.81 Encounter for therapeutic drug level monitoring (principal); Z79.01 Long term (current) use of anticoagulants